=== PATIENT | male | born 1950 | race Caucasian/White ===

== ENCOUNTER 2016-12-03 06:36 | Day surgery (SDC) | payer MEDICARE, MEDICAID ==
[~2016-12-03] VITALS: Ht 165.1 cm; Wt 72.3 kg
[~2016-12-03 06:36] MED LIST: ACETAMINOPHEN 325 MG TABLET PO PRN
[2016-12-03] MEDS ORDERED: FLURBIPROFEN SODIUM 0.03% 2.5 ML OPHTHALMIC SOLUTION ONE (06:57)
[2016-12-03] MEDS ORDERED: PHENYLEPHRINE HCL 2.5% 2 ML OPHTHALMIC SOLUTION ONE (06:57)
[2016-12-03] MEDS ORDERED: CYCLOPENTOLATE HCL 1% 2 ML OPHTHALMIC SOLUTION ONE (06:57)
[2016-12-03] MEDS ORDERED: TROPICAMIDE 1% 2 ML OPHTHALMIC SOLUTION ONE (06:57)
[2016-12-03] MEDS ORDERED: RINGERS SOLUTION,LACTATED 500 ML IV ONE ×2 (06:58→08:00)
[2016-12-03] MEDS ORDERED: NAPR-58 PO (07:30)
[2016-12-03] MEDS: FLURBIPROFEN SODIUM 0.03% 2.5 ML OPHTHALMIC SOLUTION OD SCH ×3 (07:41→07:52)
[2016-12-03] MEDS: CYCLOPENTOLATE HCL 1% 2 ML OPHTHALMIC SOLUTION OD SCH ×3 (07:42→07:52)
[2016-12-03] MEDS: TROPICAMIDE 1% 2 ML OPHTHALMIC SOLUTION OD SCH ×3 (07:42→07:52)
[2016-12-03] MEDS: PHENYLEPHRINE HCL 2.5% 2 ML OPHTHALMIC SOLUTION OD SCH ×3 (07:42→07:52)
[2016-12-03] MEDS ORDERED: MIDAZOLAM HCL 2 MG/2 ML VIAL IVP ONE (23:41)
[2016-12-03] MEDS ORDERED: FentaNYL CITRATE-PF 100 MCG/2 ML VIAL IVP ONE (23:41)
== END 2016-12-03 10:30 | disposition home or self-care (01) ==
LOC: SURGERY 06:36 → EDSEX 09:45 → SURGERY 10:30
PROVIDERS: ATTEND Ophthalmology
DX: H25.11 Age-related nuclear cataract, right eye (principal); I10 Essential (primary) hypertension; E78.00 Pure hypercholesterolemia, unspecified; G89.29 Other chronic pain; M54.5 Low back pain
CPT/HCPCS: 66984; 93005; C1780; J2250; J3010; J7120